=== PATIENT | female | born 1945 | race Caucasian/White ===

== ENCOUNTER 2021-01-05 14:15 | Outpatient (CLI) | payer MEDICARE, OTHER, SELFPAY ==
--- NOTE | 2021-01-05 14:27 | XRR_ITS ---
PROCEDURE INFORMATION: Exam: XR Cervical Spine Exam date and time: 01/05/2021 2:27 PM Age: 75 years old Clinical indication: Pain and injury or trauma; Fall; Blunt trauma; Neck pain; Injury date: 01/01/21; Injury details: Fell out of bed; Prior surgery; Surgery type: Cervical spine fusion PT unsure of which vertebrae TECHNIQUE: Imaging protocol: XR of the cervical spine. Views: 2 or 3 views. Total images: 3 COMPARISON: No relevant prior studies available. FINDINGS: Bones/joints: No visible fracture, subluxation, or dislocation. Previous fusion C5 and C6. Osteopenia. Advanced degenerative disc disease C6/C7. Facet arthrosis. No visible spondylolisthesis. Soft tissues: Unremarkable for age. Vasculature: Arteriosclerosis. XR/XR cervical spine 3V* [id number] IMPRESSION: Nonacute.
== END 2021-01-05 14:16 | disposition home or self-care (01) ==
LOC: RAD 14:24
PROVIDERS: Visit Provider Nurse Practitioner
DX: M54.2 Cervicalgia (principal)
CPT/HCPCS: 72040

== ENCOUNTER 2021-01-23 11:31 | Emergency (ER) | payer MEDICARE, OTHER, SELFPAY ==
[2021-01-23 11:51] VITALS: BP 137/88; PULSE 69; RESP 17; TEMP 36.7; O2SAT 96; BMI 24.3
[2021-01-23 14:30] LABS: Basophils # 0.1 10^3/uL (0.0-0.1); Basophils % 0.9 %; Eosinophils # 0.1 10^3/uL (0.0-0.8); Eosinophils % 1.8 %; Hemoglobin 14.5 g/dL (11.5-15.3); Lymphocytes # 1.7 10^3/uL (0.8-4.8); Lymphocytes % 25.4 %; Mean Corpuscular HGB Conc 31.5 g/dL (30.0-36.0); Mean Corpuscular Hemoglobin 28.4 pg (28.0-34.0); Mean Corpuscular Volume 90.2 fL (81-99); Mean Platelet Volume 11.1 fL (7.4-10.4); Monocytes # 0.6 10^3/uL (0.2-0.9); Monocytes % 9.2 %; Neutrophils # 4.13 10^3/uL (1.8-7.7); Neutrophils % 62.5 %; Nucleated Red Blood Cells % 0 %; Platelet Count 259 10^3/cmm (130-400); Red Cell Distribution Width 13.6 % (12.1-15.1); White Blood Count 6.6 10^3/uL (4.0-10.0)
[2021-01-23 15:01] LABS: Alanine Aminotransferase 15 U/L (0-33); Albumin Level 4.6 g/dL (3.5-5.2); Alkaline Phosphatase 116 IU/L (35-105); Anion Gap 14.3 (5-19); Aspartate Amino Transferase 21 U/L (0-32); Blood Urea Nitrogen 19 mg/dL (8-23); Calcium 9.5 mg/dL (8.5-10.5); Carbon Dioxide 27 mmol/L (22-29); Chloride 104 mmol/L (98-107); Globulin 2.5 g/dL (1.3-4.6); Glucose 76 mg/dL (65-115); Lipase 38 U/L (13-60); Osmolality Calculated 293 mOsm/kg (285-295); Potassium 4.3 mmol/L (3.5-5.1); Sodium 141 mmol/L (136-145); Total Bilirubin 0.5 mg/dL (0.15-1.2); Total Protein 7.1 g/dL (6.6-8.7)
[2021-01-23 15:34] LABS: Add Urine Microscopic? NO; Charge for UA Resulting for Rev
[2021-01-23 16:42] LABS: Bilirubin Urine Neg (Negative); Blood Urine Neg (Negative); Glucose Urine UA Norm (Normal); Ketones Urine 1+ (Negative); Leukocyte Esterase Urine Negative (Negative); Nitrate Urine Negative (Negative); Protein Urine Neg (Negative); Specific Gravity, Urine 1.015 (1.005-1.030); Urine Appearance Clear (CLEAR); Urine Color Yellow (Yellow); Urobilinogen Urine Norm (Negative); pH Urine 6 (5-7)
[2021-01-23 17:00] VITALS: BP 139/88; PULSE 71; RESP 18; O2SAT 97
--- NOTE | 2021-01-23 17:38 | CTR_ITS ---
PROCEDURE INFORMATION: Exam: CT Abdomen And Pelvis Without Contrast Exam date and time: 01/23/2021 5:38 PM Age: 75 years old Clinical indication: Abdominal pain; Flank; Left; Prior surgery; Surgery type: Appy, hyst; Patient HX: HX of skin cancer; Additional info: Left flank pain TECHNIQUE: Imaging protocol: Computed tomography of the abdomen and pelvis without contrast. Total images: 295 Radiation optimization: All CT scans at this facility use at least one of these dose optimization techniques: automated exposure control; mA and/or kV adjustment per patient size (includes targeted exams where dose is matched to clinical indication); or iterative reconstruction. COMPARISON: No relevant prior studies available. RADIATION DOSE METRICS: Total DLP (mGy-cm): 731.09 FINDINGS: Lungs: Limited assessment of the lung bases fails to reveal evidence for active cardiopulmonary process. Liver: No visible hepatic mass or cystic structure. Gallbladder and bile ducts: Unremarkable. No calcified stones. No ductal dilation. Pancreas: Pancreas is unremarkable. No visible pancreatic ductal ectasia. Spleen: Rare calcified splenic granuloma. Spleen otherwise unremarkable. Adrenal glands: Adrenal glands unremarkable. Kidneys and ureters: No hydronephrosis or perinephric fluid bilaterally. No visible nephrolithiasis or visible ureterolithiasis Stomach and bowel: Nonobstructive bowel pattern. Mild diverticulosis coli without visible evidence for acute diverticulitis. No visible adynamic or reactive ileus. Heavy fecal residue consistent with constipation. Appendix: Status post appendectomy. Intraperitoneal space: No visible pneumoperitoneum or intraperitoneal ascites. Vasculature: The abdominal aorta is nonaneurysmal. Moderate arterial sclerotic disease. Lymph nodes: Unremarkable. No enlarged lymph nodes. Urinary bladder: Urinary bladder unremarkable. Reproductive: Status post hysterectomy. Bones/joints: Scoliosis. No visible active or acute osseous pathology. Age-appropriate degenerative disease and degenerative disc disease with spondylosis deformans and facet arthrosis. Osteopenia/osteoporosis. Soft tissues: Unremarkable. CT/CT kidney stone [id number] IMPRESSION: 1. Currently no visible evidence for acute abdominal or pelvic pathologic process. 2. Constipation. 3. No visible hydronephrosis, hydroureter, ureterolithiasis, nephrolithiasis, or nephrocalcinosis. 4. Mild diverticulosis coli without evidence for acute diverticulitis. Radiation Dose CTDIVOL = (mGy): DLP = 731.09 (mGy-cm)
[2021-01-23 18:19] LABS: SARS Covid-2 Antigen Negative (Negative)
--- NOTE | 2021-01-23 19:05 | W.ED.BACK ---
HPI - Back Pain/Injury General: Chief Complaint: Back Pain/Injury Stated Complaint: L FLANK PAIN X 4 DAYS Time Seen by Provider: 01/23/21 17:24 Source: patient Mode of arrival: ambulatory Limitations: no limitations History of Present Illness: HPI Narrative: Patient is a 75-year-old female who presents to the emergency department with left flank pain. She said symptoms started about 4 days ago and has been gradually worsening. Today has been the worst day for pain so far. She denies any urinary symptoms. She was recently diagnosed with gout. She has some nausea but no vomiting. Pain radiates to her left upper quadrant region. MD elicited complaint: back pain Onset (ago): day(s) (4) Timing: constant Severity: severe Similar Symptoms Previously: No Quality: sharp Location: left flank Radiation: abdomen (LUQ) Associated symptoms: Reports abdominal pain; Deny arthralgias, chills, change in bowel habits, difficulty walking, dysuria, fatigue, fecal incontinence, fever(s), hematuria, myalgias, numbness, syncope, tingling/numbness/burning, urinary frequency, urinary urgency, vomiting or weakness Review of Systems General: Reports: 10 or more systems reviewed and unremarkable except in HPI and below Const: Denies: fever(s), chills or fatigue Card: Denies: syncope GI: Reports: abdominal pain; Denies: vomiting, fecal incontinence or change in bowel habits : Denies: dysuria, urinary urgency or hematuria Neuro: Denies: difficulty walking PFSH ED PFSH: Social History Smoking and tobacco status: former smoker Physical Exam Const: COMMON NORMALS: no acute distress, average body habitus, patient oriented x3, no limitations, healthy appearing, alert and well nourished HENMT: COMMON NORMALS: normocephalic, atraumatic and moist oral mucous membranes HEAD & SCALP: normocephalic and atraumatic Neck/C-Spine: COMMON NORMALS: no meningeal signs and no JVD Resp: COMMON NORMALS: normal respiratory effort, No retractions, No use of accessory muscles, clear to auscultation bilaterally and percussion normal AUSCULTATION: clear to auscultation bilaterally PERCUSSION: percussion normal Cardio: COMMON NORMALS: no JVD, regular rate, regular rhythm, S1 normal heart sound present, S2 normal heart sound present, No gallops present (Cardio), No clicks present (Cardio), No murmurs present (Cardio), No rub (Cardio) and Peripheral pulses 2+ throughout RATE: regular rate RHYTHM: regular rhythm HEART SOUNDS: S1 normal heart sound present and S2 normal heart sound present PERIPHERAL PULSES: Peripheral pulses 2+ throughout GI: COMMON NORMALS: Normal to inspection, nondistended, normoactive bowel sounds present, Soft to palpation, non-tender, No hepatosplenomegaly present, no masses and no bruits PALPATION: Yes Soft to palpation and Yes No hepatosplenomegaly present : BLADDER/KIDNEY EXAM: Yes CVA tenderness Back/Pelvis: GENERAL BACK: Yes CVA tenderness CVA tenderness: left LUMBAR SPINE/LOWER BACK: No lumbar spinal tenderness and Yes paraspinal muscle tenderness Lumbar paraspinal muscle tenderness: left Extremity: COMMON NORMALS: normal to inspection, full ROM, capillary refill normal, no calf tenderness and no pedal edema Neuro: COMMON NORMALS: patient oriented x3 SENSORIUM/ORIENTATION: Yes alert MENINGEAL SIGNS: Yes no meningeal signs Skin: COMMON NORMALS: no rashes or lesions noted, no wounds, turgor normal, no jaundice, no petechiae and no mottling GENERAL SKIN EXAM: no rashes or lesions noted and turgor normal Course Reevaluation(s): Reevaluation #1: Discussed her lab and imaging findings with her. Negative for acute findings. We will discharge her home with a prescription for hydrocodone to be used for a couple of days. She likely has lumbar strain. She voiced understanding and is in agreement with the plan. Time: 19:32 Vital Signs: Vital signs: Vital Signs Temperature 98.1 F 01/23/21 11:51 Pulse Rate 71 01/23/21 17:00 Respiratory Rate 18 01/23/21 17:00 Blood Pressure 139/88 01/23/21 17:00 Pulse Oximetry 97 01/23/21 17:00 MDM - Back Pain/Injury MDM Narrative: Medical decision making narrative: 75-year-old female patient who presents to the emergency department with left flank pain. Evaluation in the emergency department is negative including negative urinalysis and negative CT of her abdomen for renal calculi. She is managed as a case of lumbar strain and is discharged home with a prescription for muscle relaxants and analgesic. Medical Records: Attestation: I reviewed the patient's medical records. Lab Data: Attestation: I reviewed the patient's lab results. Labs: Lab Results 01/23/21 01/23/21 01/23/21 Range/Units 14:15 14:15 15:25 WBC 6.6 (4.0-10.0) 10^3/ uL RBC 5.10 (4.1-5.3) 10^6/u L Hgb 14.5 (11.5-15.3) g/dL Hct 46.0 (37.0-47.0) % MCV 90.2 (81-99) fL MCH 28.4 (28.0-34.0) pg MCHC 31.5 (30.0-36.0) g/dL RDW 13.6 (12.1-15.1) % Plt Count 259 (130-400) 10^3/c mm MPV 11.1 H (7.4-10.4) fL Neut % (Auto) 62.5 % Lymph % (Auto) 25.4 % Waldo % (Auto) 9.2 % Eos % (Auto) 1.8 % Baso % (Auto) 0.9 % Neut # (Auto) 4.13 (1.8-7.7) 10^3/u L Lymph # (Auto) 1.7 (0.8-4.8) 10^3/u L Waldo # (Auto) 0.6 (0.2-0.9) 10^3/u L Eos # (Auto) 0.1 (0.0-0.8) 10^3/u L Baso # (Auto) 0.1 (0.0-0.1) 10^3/u L Nucleated RBC % (a uto) 0 % Nucleated RBCs # 0.0 /100WBC Sodium 141 (136-145) mmol/L Potassium 4.3 (3.5-5.1) mmol/L Chloride 104 (98-107) mmol/L Carbon Dioxide 27 (22-29) mmol/L Anion Gap 14.3 (5-19) BUN 19 (8-23) mg/dL Creatinine 0.6 (0.5-0.9) mg/dL GFR Calculation Not Reportable Glucose 76 (65-115) mg/dL Calculated Osmolal ity 293 (285-295) mOsm/k g Calcium 9.5 (8.5-10.5) mg/dL Total Bilirubin 0.5 (0.15-1.2) mg/dL AST 21 (0-32) U/L ALT 15 (0-33) U/L Alkaline Phosphata se 116 H (35-105) IU/L Total Protein 7.1 (6.6-8.7) g/dL Albumin 4.6 (3.5-5.2) g/dL Globulin 2.5 (1.3-4.6) g/dL Lipase 38 (13-60) U/L Urine Color Yellow (Yellow) Urine Appearance Clear (CLEAR) Urine pH 6 (5-7) Ur Specific Gravit y 1.015 (1.005-1.030) Urine Protein Neg (Negative) Urine Glucose (UA) Norm (Normal) Urine Ketones 1+ H (Negative) Urine Blood Neg (Negative) Urine Nitrate Negative (Negative) Urine Bilirubin Neg (Negative) Urine Urobilinogen Norm (Negative) mg/dL Ur Leukocyte Michelle ase Negative (Negative) SARS-CoV-2 Ag (Rap id) (Negative) 01/23/21 Range/Units 17:50 WBC (4.0-10.0) 10^3/ uL RBC (4.1-5.3) 10^6/u L Hgb (11.5-15.3) g/dL Hct (37.0-47.0) % MCV (81-99) fL MCH (28.0-34.0) pg MCHC (30.0-36.0) g/dL RDW (12.1-15.1) % Plt Count (130-400) 10^3/c mm MPV (7.4-10.4) fL Neut % (Auto) % Lymph % (Auto) % Waldo % (Auto) % Eos % (Auto) % Baso % (Auto) % Neut # (Auto) (1.8-7.7) 10^3/u L Lymph # (Auto) (0.8-4.8) 10^3/u L Waldo # (Auto) (0.2-0.9) 10^3/u L Eos # (Auto) (0.0-0.8) 10^3/u L Baso # (Auto) (0.0-0.1) 10^3/u L Nucleated RBC % (a uto) % Nucleated RBCs # /100WBC Sodium (136-145) mmol/L Potassium (3.5-5.1) mmol/L Chloride (98-107) mmol/L Carbon Dioxide (22-29) mmol/L Anion Gap (5-19) BUN (8-23) mg/dL Creatinine (0.5-0.9) mg/dL GFR Calculation Glucose (65-115) mg/dL Calculated Osmolal ity (285-295) mOsm/k g Calcium (8.5-10.5) mg/dL Total Bilirubin (0.15-1.2) mg/dL AST (0-32) U/L ALT (0-33) U/L Alkaline Phosphata se (35-105) IU/L Total Protein (6.6-8.7) g/dL Albumin (3.5-5.2) g/dL Globulin (1.3-4.6) g/dL Lipase (13-60) U/L Urine Color (Yellow) Urine Appearance (CLEAR) Urine pH (5-7) Ur Specific Gravit y (1.005-1.030) Urine Protein (Negative) Urine Glucose (UA) (Normal) Urine Ketones (Negative) Urine Blood (Negative) Urine Nitrate (Negative) Urine Bilirubin (Negative) Urine Urobilinogen (Negative) mg/dL Ur Leukocyte Michelle ase (Negative) SARS-CoV-2 Ag (Rap id) Negative (Negative) Imaging Data^: CT Abd/Pel: Attestation: I personally reviewed and interpreted this imaging study as follows: Radiologist's impression: [address] [id number] Scan ReportSigned Patient: Sapna Mcghee #: [id number]: 1945cct#:[id number]/Sex: 75 / FADM Date: 01/23/21Loc: ERRoom/Bed:Attending Dr: Ordering Provider/Ordering MD: Nel Curtis MD, [facility] Date of Service: 01/23/21 Procedure(s): CT kidney stone [id number] Accession Number(s): [id number] Report Number: [id number] PROCEDURE INFORMATION: Exam: CT Abdomen And Pelvis Without Contrast Exam date and time: 01/23/2021 5:38 PM Age: 75 years old Clinical indication: Abdominal pain; Flank; Left; Prior surgery; Surgery type: Appy, hyst; Patient HX: HX of skin cancer; Additional info: Left flank pain TECHNIQUE: Imaging protocol: Computed tomography of the abdomen and pelvis without contrast. Total images: 295 Radiation optimization: All CT scans at this facility use at least one of these dose optimization techniques: automated exposure control; mA and/or kV adjustment per patient size (includes targeted exams where dose is matched to clinical indication); or iterative reconstruction. COMPARISON: No relevant prior studies available. RADIATION DOSE METRICS: Total DLP (mGy-cm): 731.09 FINDINGS: Lungs: Limited assessment of the lung bases fails to reveal evidence for active cardiopulmonary process. Liver: No visible hepatic mass or cystic structure. Gallbladder and bile ducts: Unremarkable. No calcified stones. No ductal dilation. Pancreas: Pancreas is unremarkable. No visible pancreatic ductal ectasia. Spleen: Rare calcified splenic granuloma. Spleen otherwise unremarkable. Adrenal glands: Adrenal glands unremarkable. Kidneys and ureters: No hydronephrosis or perinephric fluid bilaterally. No visible nephrolithiasis or visible ureterolithiasis Stomach and bowel: Nonobstructive bowel pattern. Mild diverticulosis coli without visible evidence for acute diverticulitis. No visible adynamic or reactive ileus. Heavy fecal residue consistent with constipation. Appendix: Status post appendectomy. Intraperitoneal space: No visible pneumoperitoneum or intraperitoneal ascites. Vasculature: The abdominal aorta is nonaneurysmal. Moderate arterial sclerotic disease. Lymph nodes: Unremarkable. No enlarged lymph nodes. Urinary bladder: Urinary bladder unremarkable. Reproductive: Status post hysterectomy. Bones/joints: Scoliosis. No visible active or acute osseous pathology. Age-appropriate degenerative disease and degenerative disc disease with spondylosis deformans and facet arthrosis. Osteopenia/osteoporosis. Soft tissues: Unremarkable. CT/CT kidney stone [id number] IMPRESSION: 1. Currently no visible evidence for acute abdominal or pelvic pathologic process. 2. Constipation. 3. No visible hydronephrosis, hydroureter, ureterolithiasis, nephrolithiasis, or nephrocalcinosis. 4. Mild diverticulosis coli without evidence for acute diverticulitis. Radiation Dose CTDIVOL = (mGy): DLP = 731.09 (mGy-cm) Dictated By:Yassine Lai By:Yassine Lai Date/Time:01/23/21D/ 08 Discharge Plan Discharge Patient Disposition: Home Clinical Impression: Strain of lumbar region Qualifiers: Encounter type: initial encounter Qualified Code(s): S39.012A - Strain of muscle, fascia and tendon of lower back, initial encounter Condition: Stable Prescriptions: New hydrocodone-acetaminophen 5-325 mg tablet 1 tab PO Q8H PRN (Reason: pain) Qty: 12 RF: 0 cyclobenzaprine 5 mg tablet 5 mg PO TID PRN (Reason: muscle spasm) Qty: 30 RF: 0 Continued levothyroxine 75 mcg capsule 75 mcg PO DAILY RF: 0 naproxen 375 mg tablet 375 mg PO BID 10 Days Qty: 20 RF: 0 Discharge Orders: Discharge ED (Routine); Ordered 01/23/21 Ordered By: Nel Curtis Referrals: Lamar Perez DO [Primary Care Provider] - 1-3 days Discharge Diet: Usual diet Discharge Activity: Increase activity as tolerated Patient Instructions: Low Back Strain (ED), Opioid Safety Activity Restrictions/Additional Instructions: Return for any new or worsening symptoms. Follow-up with your primary care provider within 3 days. Take the pain medicine as needed for pain. Drink plenty of fluids to keep well-hydrated. 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
[2021-01-23] MEDS: ketorolac 30 mg/mL INJ IM (19:49)
[2021-01-23] MEDS: orphenadrine 30 mg/mL Inj 2 mL 60 MG IM (19:49)
== END 2021-01-23 20:05 | disposition home or self-care (01) ==
PROVIDERS: Physician Assistant; Emergency Provider Family Medicine; PCP Family Medicine
DX: S39.012A Strain of muscle, fascia and tendon of lower back, initial encounter (principal); Z87.891 Personal history of nicotine dependence; X58.XXXA Exposure to other specified factors, initial encounter; Z20.822 Contact with and (suspected) exposure to COVID-19
CPT/HCPCS: 36415; 74176; 80053; 81003; 83690; 85025; 87426; 96372; 99283; J1885; J2360

== ENCOUNTER → 2021-02-09 11:19 | Outpatient (BNVA) | payer MEDICARE, OTHER, SELFPAY | PROVIDERS: PCP Family Medicine; Visit Provider Family Medicine | DX: G62.9 Polyneuropathy, unspecified (principal); G56.03 Carpal tunnel syndrome, bilateral upper limbs; F43.20 Adjustment disorder, unspecified; Z79.899 Other long term (current) drug therapy | CPT/HCPCS: 82607; 84443 ==

== ENCOUNTER → 2021-05-18 10:38 | Outpatient (BNVA) | payer MEDICARE, OTHER, SELFPAY | PROVIDERS: PCP Family Medicine; Referring Provider Family Medicine; Visit Provider Specialist | DX: G56.03 Carpal tunnel syndrome, bilateral upper limbs (principal); G56.23 Lesion of ulnar nerve, bilateral upper limbs | CPT/HCPCS: 95910 ==

== ENCOUNTER 2021-07-15 06:00 | Outpatient (RCR) | payer MEDICARE, OTHER, SELFPAY | END 2021-07-17 23:59 | disposition home or self-care (01) | LOC: SOT 06:00 | PROVIDERS: PCP Family Medicine; Referring Provider Family Medicine; Visit Provider Family Medicine | DX: G56.03 Carpal tunnel syndrome, bilateral upper limbs (principal) | CPT/HCPCS: 97165; L3924 ==

== ENCOUNTER 2021-07-18 06:00 | Outpatient (RCR) | payer MEDICARE, OTHER, SELFPAY | END 2021-08-17 23:59 | disposition home or self-care (01) | LOC: SOT 06:00 | PROVIDERS: PCP Family Medicine; Referring Provider Family Medicine; Visit Provider Family Medicine | DX: G56.03 Carpal tunnel syndrome, bilateral upper limbs (principal) | CPT/HCPCS: 97022; 97032; 97035; 97110; 97140 ==

== ENCOUNTER → 2021-09-01 12:18 | Outpatient (BNVA) | payer MEDICARE, OTHER, SELFPAY | PROVIDERS: PCP Family Medicine; Visit Provider Nurse Practitioner | DX: R10.9 Unspecified abdominal pain (principal) | CPT/HCPCS: 81000; 87086 ==

== ENCOUNTER 2021-11-04 08:13 | Outpatient (RCR) | payer MEDICARE, OTHER, SELFPAY | END 2021-11-14 23:59 | disposition home or self-care (01) | LOC: SPT 08:13 | PROVIDERS: PCP Family Medicine; Referring Provider Family Medicine; Visit Provider Family Medicine | DX: N81.10 Cystocele, unspecified (principal) | CPT/HCPCS: 97110; 97161 ==

== ENCOUNTER 2021-11-19 17:02 | Outpatient (CLI) | payer MEDICARE, OTHER, SELFPAY ==
--- NOTE | 2021-11-19 17:26 | MR_ITS ---
WS: [id number] MRI BRAIN WITH HIGH-RESOLUTION IMAGING THROUGH THE INTERNAL AUDITORY CANALS WITHOUT CONTRAST HISTORY: MIXED CONDUCTIVE AND SENSORINEURAL HEARING LOSS COMPARISON: None available. TECHNIQUE: Multiplanar, multisequence imaging is performed through the brain. Additional 3 mm imaging performed in multiple planes through the internal auditory canal. Patient refused IV contrast. No acute intracranial hemorrhage, midline shift, edema or mass effect. Multiple T2 and FLAIR signal hyperintensities throughout the white matter. No prior infarct. No hemor rhage. There is very minimal small vessel ischemic changes in the white matter. No prior infarct. Ventricles and extra-axial spaces are very minimally prominent on the basis of atrophy. Meckel's cave is normal. No masses are identified. Very mild ectopia of the cerebellar tonsils without Chiari malformation. Internal and external auditory canals: Normal without IV contrast. No signal abnormality Cranial nerves VII and VIII complexes: Normal without IV contrast. No distortion or signal abnormalit ies. Cerebellopontine angles: Normal. Paranasal sinuses: Normal. Mastoid air cells: Normal. Calvarium and scalp: Normal. Visualized [place] and dural venous sinuses demonstrate no abnormality. MR/MR iac's wo con [id number] IMPRESSION: 1. Normal unenhanced appearance of the internal auditory canals. Patient has r efused IV contrast for this examination. No mass or mass effect identified. 2. Very mild atrophy and small vessel ischemic changes in the white matter. 3. Mild cerebellar ectopia.
== END 2021-11-19 17:03 | disposition home or self-care (01) ==
LOC: RAD 17:16
PROVIDERS: PCP Family Medicine; Visit Provider Otolaryngology
DX: H90.8 Mixed conductive and sensorineural hearing loss, unspecified (principal); H91.22 Sudden idiopathic hearing loss, left ear
CPT/HCPCS: 70551

== ENCOUNTER → 2022-03-29 13:56 | Outpatient (BNVA) | payer MEDICARE, OTHER, SELFPAY | PROVIDERS: PCP Family Medicine; Referring Provider Dermatology; Visit Provider Podiatrist Foot & Ankle Surgery | DX: M20.21 Hallux rigidus, right foot (principal); M20.22 Hallux rigidus, left foot; M20.41 Other hammer toe(s) (acquired), right foot; M20.42 Other hammer toe(s) (acquired), left foot; L60.3 Nail dystrophy | CPT/HCPCS: 73630; 99203; 99204 ==

== ENCOUNTER → 2022-04-07 13:42 | Outpatient (BNVA) | payer MEDICARE, OTHER, SELFPAY | PROVIDERS: PCP Family Medicine; Visit Provider Specialist | DX: M65.4 Radial styloid tenosynovitis [de Quervain] (principal); M65.351 Trigger finger, right little finger; M65.341 Trigger finger, right ring finger | CPT/HCPCS: 73110; 99204 ==

== ENCOUNTER → 2022-04-28 13:26 | Outpatient (BNVA) | payer MEDICARE, OTHER, SELFPAY | PROVIDERS: PCP Family Medicine; Visit Provider Specialist | DX: M65.4 Radial styloid tenosynovitis [de Quervain] (principal); G56.01 Carpal tunnel syndrome, right upper limb | CPT/HCPCS: 99214 ==

== ENCOUNTER 2022-05-07 06:27 | Day surgery (SDC) | payer MEDICARE, OTHER, SELFPAY ==
[2022-05-06 14:23] VITALS: BMI 24.4
[2022-05-07] VITALS (9 sets, daily range): BP systolic 117–163; BP diastolic 66–96; PULSE 68–94; RESP 12–20; TEMP 36.5–37.1; O2SAT 97–99
[2022-05-07] MEDS: CELEcoxib 200 mg Capsule 400 MG PO (07:10)
[2022-05-07] MEDS: sodium chloride 0.9% 1,000 ML 30 ML IV (07:10)
[2022-05-07] MEDS: acetaminophen 1,000 MG/100 ML PIGGYBACK 400 MG IV (07:10)
--- NOTE | 2022-05-07 07:15 | W.PM.OPSUD ---
Surgery/Procedure H&P Update DATE OF PROCEDURE: May 07, 2022 DATE H&P PERFORMED: 04/28/22 H&P UPDATE INFORMATION: I have reviewed H&P completed within last 30 days, I have examined patient prior to procedure, No changes to prior documentation and H&P is in [facility] on date indicated PREOP DIAGNOSIS: Left de Quervain's tenosynovitis PLANNED PROCEDURE: Operation Date: 05/07/22 08:20 Proposed Procedures p LEFT DE QUERVIENS RELEASE [id number],M65.4(Left) - Carol Ramirez MD Related Problem List Diagnoses (1) De Quervain's tenosynovitis, left:
[2022-05-07] MEDS: vancomycin 1,000 MG in sodium chloride 0.9% 250 ML 250 MG IV (08:00)
--- NOTE | 2022-05-07 08:03 | ANES.PREANE2 ---
Pre-Anesthetic Assessment Height/Weight: Height 1.65 m Weight 66.678 kg Temp Pulse Resp BP Pulse Ox O2 Del Method 98.7 F 68 18 163/96 98 05/07/22 07:02 05/07/22 07:02 05/07/22 07:02 05/07/22 07:02 05/07/22 07:02 05/07/22 07:07 Preop Diagnosis: Left de Quervain's tenosynovitis Operation Date: 05/07/22 08:20 Proposed Procedures p LEFT DE QUERVIENS RELEASE [id number],M65.4(Left) - Carol Ramirez MD Familial anesthetic complications: none Was Beta Omkar taken within 24 hours: N/A Was Clonidine taken within 24 hours: N/A Last intake: Intake Last Liquid Date 05/06/22 Last Liquid Time 19:00 Last Solid Date 05/06/22 Last Solid Time 19:00 Social No alcohol and No tobacco Exam alert, oriented x 3, clear to auscultation bilaterally and regular rate & rhythm Airway Submandibular: within normal limits Cervical ROM: within normal limits Mallampati: Class II Dentition: caps Metabolic Thyroid Disease Anesthetic Plan ASA status: 2 Anesthesia: Choice Medications/Allergies Home Medications Medication Instructions Recorded Confirmed Last Taken Type levothyroxine 75 mcg capsule 75 mcg PO DAILY 01/05/21 05/07/22 05/07/22 05:00 History Allergies Allergy/AdvReac Type Severity Reaction Status Date / Time codeine Allergy Unknown Verified 05/06/22 14:19 epinephrine Allergy ADR/ALGY-Hy Verified 05/06/22 14:19 potension Current Medications Generic Name Dose Route Start Last Admin Trade Name Freq PRN Reason Stop Dose Admin Sodium Chloride 1,000 mls @ 30 mls/hr 05/07/22 07:00 05/07/22 07:10 Sodium Chloride 0.9% IV 05/08/22 06:59 30 mls/hr .Q24H KENNY Administration PFSH Anesthesia Medical History Gout Zack's disease Surgical History History of appendectomy History of incisional hernia repair History of left-sided carotid endarterectomy History of neck surgery Cervical fusion History of total hysterectomy Social History Smoking and tobacco status: never smoked Alcohol intake: never Data Anesthesia Cardiac Studies: No Data to Display
[2022-05-07] MEDS: ceFAZolin 2,000 MG in sodium chloride 0.9% (plus) 50 ML 100 MG IV (08:36)
--- NOTE | 2022-05-07 09:27 | PM.OP ---
Operative Report Date of procedure: May 07, 2022 Pre-op diagnosis: Left de Quervain's tenosynovitis Post-op diagnosis: Left de Quervain's tenosynovitis Post-op findings: Significant synovitis and swelling. Very thickened ligament Procedure done: Release left de Quervain's canal for tenosynovitis Pathology: none sent Surgeon: Carol Ramirez Commercial Mortgage Broker: None Anesthesia: General (Per LMA, ASA 2) Estimated blood loss (mL): 2 Tourniquet time (min): 22 (250 mmHg) IV fluids (mL): 500 Urine output (mL): 0 (No Rivera) Complications: None Condition: stable Disposition: PACU (Then to same-day surgery for discharge home with family) Brief History: This is an established 77 year old female patient here today for release of her left de Quervain's canal due to tenosynovitis.??Patient continues to have pain to the thumb and travels up the arm.? While in the office, we discussed surgical intervention, and the patient wished to proceed. Risks and complications were discussed. Questions were answered and consents were signed. Procedure: The patient was brought to the operating theater. Anesthesia provided general anesthesia per LMA. The patient's left upper extremity was prepped and draped in usual fashion utilizing DuraPrep. It was draped free.? Tourniquet was elevated to 250 mmHg for a total tourniquet time of 22 minutes.? 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 The radial styloid was palpated and an incision was made horizontally approximately 2 cm proximal to the tip of the radial styloid. Dissection continued through the skin and dermis but following that soft tissue blunt dissection was accomplished to prevent injury to the superficial radial nerve branches in the area. We were able to retract these branches and the first dorsal compartment was visualized. The fibrous tissue over the first dorsal compartment was noted to be quite thickened and erythematous. This was released longitudinally using a combination of scalpel and scissors. We then confirmed that each of the tendons at been released. There were a total of 3 tendon slips within the de Quervain's canal. Each of them was released. The floor of the canal was evaluated for any further slips of tendon and there were none. All of these were released at least a centimeter distal to the radial styloid and proximally as well. There was no further compression across the tendons. The tendons were pulled up out of the tunnel for evaluation. Following this, the wound was irrigated. Attention was then directed to closure. Closure was accomplished with 4-0 Monocryl in the subcutaneous tissues, and subcuticular suture was placed in a running fashion. We injected the wound with half percent Marcaine plain for local anesthetic. This was followed by Dermabond and OpSite. We then placed fluffed fluffs followed by soft roll, and an Sonny wrap. Patient was returned to Recovery Room in a satisfactory condition and will be discharged home to follow-up with me in the office. There were no specimens and no complications. Related Problem List Diagnoses (1) De Quervain's tenosynovitis, left:
[2022-05-07] MEDS: meperidine 50 mg/mL INJ 12.5 MG IVP (09:40)
--- NOTE | 2022-05-07 13:34 | ANE.PACU2 ---
Inpatient post-anesthesia follow up: Airway intact: Yes Vital signs: Temperature 97.7 F Pulse Rate 83 Respiratory Rate 16 Blood Pressure 138/74 Pulse Oximetry 97 Oxygen Delivery Me thod Room Air Oxygen Flow Rate Fraction of Inspir ed Oxygen Hydration adequate: Yes Nausea and vomiting: No Pain level: 1 Mental status: Baseline
== END 2022-05-07 11:00 | disposition home or self-care (01) ==
PROVIDERS: PCP Family Medicine; Visit Provider Specialist
PROC: (CPT 25000; principal; 2022-05-07 08:10)
DX: M65.4 Radial styloid tenosynovitis [de Quervain] (principal)
CPT/HCPCS: 25000; J1100; J2175; J2405; J2704; J3010; J3370; J3490; J7030; J7050

== ENCOUNTER → 2022-05-20 09:46 | Outpatient (BNVA) | payer MEDICARE, OTHER, SELFPAY | PROVIDERS: PCP Family Medicine; Visit Provider Nurse Practitioner Family | DX: Z98.890 Other specified postprocedural states (principal); G56.01 Carpal tunnel syndrome, right upper limb | CPT/HCPCS: 99213 ==

== ENCOUNTER → 2023-05-23 11:36 | Outpatient (BNVA) | payer MEDICARE, OTHER, SELFPAY | PROVIDERS: PCP Family Medicine; Referring Provider Nurse Practitioner Family; Visit Provider Surgery | DX: G89.29 Other chronic pain; Z87.39 Personal history of other diseases of the musculoskeletal system and connective tissue; K57.90 Diverticulosis of intestine, part unspecified, without perforation or abscess without bleeding; M54.9 Dorsalgia, unspecified | CPT/HCPCS: 99203 ==

== ENCOUNTER → 2023-05-31 13:49 | Outpatient (BNVA) | payer MEDICARE, OTHER, SELFPAY | PROVIDERS: PCP Family Medicine; Referring Provider Surgery; Visit Provider Physician Assistant | DX: G89.29 Other chronic pain; M43.16 Spondylolisthesis, lumbar region; M51.36 Other intervertebral disc degeneration, lumbar region | CPT/HCPCS: 72110; 99203 ==

== ENCOUNTER → 2023-10-03 14:45 | Outpatient (BNVA) | payer MEDICARE, OTHER, SELFPAY | PROVIDERS: Visit Provider Specialist | DX: M25.531 Pain in right wrist (principal); M25.532 Pain in left wrist; G56.03 Carpal tunnel syndrome, bilateral upper limbs | CPT/HCPCS: 73110; 99214 ==

== ENCOUNTER → 2023-11-01 14:38 | Outpatient (BNVA) | payer MEDICARE, OTHER, SELFPAY | PROVIDERS: Visit Provider Orthopaedic Surgery | DX: M47.22 Other spondylosis with radiculopathy, cervical region (principal); M54.9 Dorsalgia, unspecified; G89.29 Other chronic pain; M54.2 Cervicalgia | CPT/HCPCS: 72050; 73030; 99214 ==

== ENCOUNTER 2023-11-17 10:25 | Outpatient (CLI) | payer MEDICARE, OTHER, SELFPAY ==
--- NOTE | 2023-11-17 12:15 | MR_ITS ---
WS: [id number] MRI CERVICAL SPINE NONCONTRAST TECHNIQUE: Sagittal T1, T2 and STIR imaging. Axial T2, gradient, and fiesta imaging. CLINICAL INFORMATION: Neck pain COMPARISON: Radiograph 11/01/2023 FINDINGS: Mild cervical curve. Straightening of the normal cervical lordosis. 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 Slight anterolisthesis C7 on T1. Mild central canal stenosis C6-7. LEFT C3-4 facet synovitis likely inflammatory or degenerative. C2-C3: Mild facet arthropathy. Spinal canal and foramen are patent. C3-C4: Moderate facet arthropathy. Minimal disc bulging. Mild LEFT and no significant RIGHT foraminal narrowing. C4-C5: Mild disc osteophyte complex with endplate ridging. Slight anterolisthesis. Spinal canal is pa tent. Moderate to advanced facet arthropathy worse on the LEFT. Mild LEFT greater than RIGHT foramina l narrowing. C5-C6: Congenital segmentation anomaly. Moderate facet arthropathy. Mild LEFT and no significant RIGH T foraminal narrowing. C6-C7: Disc osteophyte complex with slight contact of the cervical cord and mild central canal stenos is. Moderate bilateral bony foraminal narrowing. Moderate facet arthropathy. C7-T1: Slight anterolisthesis. Mild disc bulging with osteophytic ridging. Mild bilateral bony forami nal narrowing. Spinal canal is patent. Mild facet arthropathy. T1-T2: Mild LEFT foraminal narrowing. Visualized brain stem structures: Normal. Prevertebral soft tissues: Normal. Small vessel changes in the herman. Tiny syrinx within the cervical cord at C6 and C7 extending to the superior endplate of T1. This cher ures 1.4 mm in maximum AP dimension. A few small thyroid nodules. MR/MR cervical spin wo con* [id number] IMPRESSION: 1. 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 2. Mild central canal stenosis C6-7 with disc osteophyte complex and slight co ntact of the cervical cord. Moderate bilateral bony foraminal narrowing at this level. 3. LEFT C3-4 facet synovitis with a small amount of facet edema. 4. Moderate to advanced arthropathy worse at C3-C4 C4-C5 and C5-C6. 5. Tiny syrinx within the cord extending from C5-T1 measuring 1.4 mm in maximu m AP dimension 6. Cord signal otherwise normal
--- NOTE | 2023-11-17 13:00 | MR_ITS ---
WS: [id number] MRI LUMBAR SPINE NONCONTRAST TECHNIQUE: Sagittal T1, T2 and STIR imaging. Axial T1 and T2 imaging. CLINICAL INFORMATION: M51.36 - Other intervertebral disc degeneration, lumbar r... COMPARISON: None. FINDINGS: Osteopenia. Lumbar scoliosis. Counting performed from the craniocervical junction. Small riblets at L 1. 6 lumbar type vertebral bodies considered L1-L6 for the purposes of this dictation. Grade 1 joan listhesis L5 on L6. T12-L1: Small RIGHT foraminal protrusion with moderate RIGHT foraminal narrowing. L1-L2: Small central protrusion with slight effacement of the ventral thecal sac. Mild bilateral fora ju[place] narrowing. L2-L3: Slight retrolisthesis. Mild disc bulge with osteophytic ridging. Impingement LEFT subarticular recess and traversing LEFT L3 nerve root. Moderate facet arthropathy. Moderate LEFT foraminal narrow ing. RIGHT foramen is patent. Mild central canal stenosis. L3-L4: Mild annular bulging. Moderate central canal stenosis with impingement on the LEFT greater micah n RIGHT subarticular recess. Moderate facet arthropathy. LEFT foraminal protrusion with moderate LEFT and no significant RIGHT foraminal narrowing. L4-L5: Mild disc bulging with severe central canal stenosis. Impingement on the RIGHT subarticular re cess. Moderate facet arthropathy with ligamentum flavum hypertrophy. Moderate to severe RIGHT foramin al narrowing. L5-L6: Grade 1 anterolisthesis. Severe central canal stenosis. Impingement of the subarticular recess . Advanced facet arthropathy with ligamentum flavum hypertrophy. Foramen are patent. L6-S1: Mild disc bulge with osteophytic ridging. Moderate to advanced facet arthropathy with small fa cet effusions. Foramen are patent. MR/MR lumbar spine wo con* [id number] IMPRESSION: 1. 6 lumbar-type vertebral bodies considered L1-L6 for the purposes of this di ctation. Counting performed from the craniocervical junction. 2. Grade 1 anterolisthesis L5 on L6 with severe central canal stenosis. 3. Severe central canal stenosis L4-5 with impingement on the RIGHT subarticul ar recess. Moderate to severe RIGHT L4-5 foraminal narrowing. 4. Impingement on the LEFT L2-3 subarticular recess with mild central canal st enosis and moderate LEFT L2-3 foraminal narrowing. 5. Moderate central canal stenosis L3-4 with a shallow central protrusion. Mod erate LEFT L3-4 foraminal narrowing. 6. Advanced arthropathy L4-L5 and L5-L6 and L6-S1.
== END 2023-11-17 10:26 | disposition home or self-care (01) ==
LOC: RAD 10:26
PROVIDERS: PCP Nurse Practitioner Family; Visit Provider Orthopaedic Surgery
DX: M54.2 Cervicalgia (principal); M51.36 Other intervertebral disc degeneration, lumbar region; M48.02 Spinal stenosis, cervical region; M47.812 Spondylosis without myelopathy or radiculopathy, cervical region; M65.88 Other synovitis and tenosynovitis, other site; M48.061 Spinal stenosis, lumbar region without neurogenic claudication; M47.816 Spondylosis without myelopathy or radiculopathy, lumbar region; M47.817 Spondylosis without myelopathy or radiculopathy, lumbosacral region
CPT/HCPCS: 72141; 72148; 99214

== ENCOUNTER → 2024-06-11 10:10 | Outpatient (BNVA) | payer MEDICARE, OTHER, SELFPAY | PROVIDERS: PCP Nurse Practitioner Family; Visit Provider Obstetrics & Gynecology | DX: N81.4 Uterovaginal prolapse, unspecified (principal) | CPT/HCPCS: 81000 ==

== ENCOUNTER → 2025-02-13 09:27 | Outpatient (BNVA) | payer MEDICARE, OTHER, SELFPAY | PROVIDERS: PCP Nurse Practitioner Family; Visit Provider Internal Medicine | DX: E05.90 Thyrotoxicosis, unspecified without thyrotoxic crisis or storm (principal); E04.1 Nontoxic single thyroid nodule; E06.3 Autoimmune thyroiditis | CPT/HCPCS: 36415; 84439; 84443; 84480; 99204 ==

== ENCOUNTER 2025-03-15 13:07 | Outpatient (CLI) | payer MEDICARE, OTHER, SELFPAY ==
--- NOTE | 2025-03-15 13:12 | US_ITS ---
WS: [id number] ULTRASOUND THYROID TECHNIQUE: Ultrasound of the thyroid. CLINICAL INFORMATION: thyroid nodule COMPARISON: None. FINDINGS: Thyroid: Diffuse heterogeneous thyroid tissue bilaterally with micronodularity. Slight increased vascularity. Recommend correlation for thyroiditis. Right thyroid lobe: 4.0 cm x 1.5 cm x 1.5 cm Left thyroid lobe: 4.5 cm x 1.5 cm x 1.9 cm. Dominant LEFT complex thyroid nodule measures 1.1 x 1.0 x 1.1 cm Isthmus: 0.1 mm. Cervical lymphadenopathy: None. US/US thyroid [id number] IMPRESSION: 1. Diffuse heterogeneous thyroid tissue bilaterally with increased vascularity . Recommend correlation for thyroiditis. 2. Complex LEFT thyroid nodule measuring 1.1 x 1.0 x 1.1 cm TIRADS Category 2: Not suspicious (total points = 2) No FNA
== END 2025-03-15 13:08 | disposition home or self-care (01) ==
LOC: RAD 13:08
PROVIDERS: PCP Nurse Practitioner Family; Visit Provider Internal Medicine
DX: E04.1 Nontoxic single thyroid nodule (principal)
CPT/HCPCS: 76536

== ENCOUNTER → 2025-04-18 11:28 | Outpatient (BNVA) | payer MEDICARE, OTHER, SELFPAY | PROVIDERS: PCP Nurse Practitioner Family; Visit Provider Internal Medicine | DX: E03.8 Other specified hypothyroidism (principal); E06.3 Autoimmune thyroiditis | CPT/HCPCS: 99214 ==

== ENCOUNTER 2025-05-30 13:50 | Outpatient (CLI) | payer MEDICARE, OTHER, SELFPAY ==
[2025-05-30 15:01] LABS: Thyroid Stimulating Hormone 2.76 uIU/mL (0.27-4.20)
[2025-05-30 23:24] LABS: Free T4 Free Thyroxine 1.47 ng/dL (0.82-1.77)
== END 2025-05-30 13:51 | disposition home or self-care (01) ==
LOC: LAB 13:53
PROVIDERS: PCP Internal Medicine; Visit Provider Internal Medicine
DX: L60.3 Nail dystrophy (principal); E06.3 Autoimmune thyroiditis
CPT/HCPCS: 36415; 84439; 84443

== ENCOUNTER → 2025-06-18 10:59 | Outpatient (BNVA) | payer MEDICARE, OTHER, SELFPAY | PROVIDERS: PCP Internal Medicine; Referring Provider Specialist; Visit Provider Specialist | DX: G56.03 Carpal tunnel syndrome, bilateral upper limbs (principal) | CPT/HCPCS: 95911 ==